=== PATIENT | female | born 1995 | race Caucasian/White ===

== ENCOUNTER 2017-08-05 23:34 | Inpatient (IN) | payer SELFPAY ==
[~2017-08-05] VITALS: Ht 162.6 cm; Wt 62.7 kg
[2017-08-05] MEDS ORDERED: ALPR0.5T8 PO (23:56)
[2017-08-05] MEDS ORDERED: VALA500T38 PO (23:56)
[2017-08-05] MEDS ORDERED: BUPR100 PO (23:56)
[2017-08-05] MEDS ORDERED: ESCI20TA PO (23:56)
[2017-08-06] MEDS ORDERED: SODIUM CHLORIDE 0.9% 1,000 ML IV ONE (00:15)
[2017-08-06 00:41] LABS: BASOPHILS % (AUTO) 0.3 % (0.0-2.0); EOSINOPHILS % (AUTO) 0.5 % (1.0-6.0); HEMATOCRIT 42.2 % (36-46); HEMOGLOBIN 14.3 g/dL (12.0-16.0); LYMPHOCYTES # (AUTO) 2.9 K/uL (1.0-4.8); LYMPHOCYTES % (AUTO) 33.6 % (22.0-44.0); MEAN CORPUSCULAR HEMOGLOBIN 32.4 pg (26.0-34.0); MEAN CORPUSCULAR VOLUME 95 fL (80-100); MONOCYTES # (AUTO) 0.5 K/uL (0.1-1.0); MONOCYTES % (AUTO) 6.1 % (2.0-9.0); NEUTROPHILS # (AUTO) 5.1 K/uL (1.8-7.7); NEUTROPHILS % (AUTO) 59.5 % (40.0-70.0); PLATELET COUNT (AUTO) 221 K/uL (150-450); RED BLOOD CELL COUNT(AUTO) 4.42 MIL/uL (4.00-5.20); RED CELL DISTRIBUTION WIDTH 12.7 % (11.5-14.5)
[2017-08-06 00:45] LABS: ANION GAP 8 mmol/L (8-16); CALCIUM, TOTAL 8.8 mg/dL (8.8-10.5); CARBON DIOXIDE 31 mmol/L (22-29); CHLORIDE 105 mmol/L (98-107); CREATININE 0.71 mg/dL (0.60-1.30); GLOMERULAR FILTR. RATE CALC > 60 mL/min (>60); GLUCOSE,RANDOM 94 mg/dL (70-110); POTASSIUM 4.6 mmol/L (3.5-5.1); SODIUM SERUM 144 mmol/L (136-145); UREA NITROGEN, BLOOD 10 mg/dL (7-18)
[2017-08-06 00:51] LABS: AMPHET/METH SCREEN,URINE NEGATIVE (NEGATIVE); BARBITURATE SCREEN, URINE NEGATIVE (NEGATIVE); BENZODIAZEPINES SCREEN,URINE NEGATIVE (NEGATIVE); CANNABINOID SCREEN,URINE NEGATIVE (NEGATIVE); COCAINE SCREEN,URINE POSITIVE (NEGATIVE); METHADONE SCREEN, URINE NEGATIVE (NEGATIVE); OPIATE SCREEN,URINE NEGATIVE (NEGATIVE); PHENCYCLIDINE SCREEN,URINE NEGATIVE (NEGATIVE)
[2017-08-06 00:52] LABS: ALANINE AMINOTRANSFERASE 24 U/L (12-78); ALBUMIN 3.9 g/dL (3.4-5.0); ALKALINE PHOSPHATASE 40 U/L (46-116); ASPARTATE AMINOTRANSFERASE 33 U/L (15-37); BILIRUBIN,TOTAL 0.4 mg/dL (0.1-1.0); TOTAL PROTEIN, SERUM 7.4 g/dL (6.4-8.2)
[2017-08-06 00:56] LABS: ACETAMINOPHEN < 2 mcg/mL (10-30)
[2017-08-06 00:57] LABS: SALICYLATE < 2.8 mg/dL (2.8-20.0)
[2017-08-06] MEDS ORDERED: HALOPERIDOL 5 MG TABLET PO PRN (01:45)
[2017-08-06] MEDS ORDERED: DiphenhydrAMINE HCL 25 MG CAPSULE PO PRN (01:45)
[2017-08-06] MEDS ORDERED: LORazepam 2 MG TABLET PO PRN (01:45)
[2017-08-06] MEDS ORDERED: IBUPROFEN 600 MG TABLET PO ONE (08:15)
[2017-08-06 10:58] VITALS: BP 126/81
[2017-08-07 05:53] LABS: CHOL/HDL RATIO 2.6 (3.9-5.7)
[2017-08-07 07:49] VITALS: BP 116/70
[2017-08-07] MEDS ORDERED: MAG HYDROX/AL HYDROX/SIMETH ES 30 ML SUSPENSION UDCUP PO PRN (08:30)
[2017-08-07] MEDS ORDERED: PETROLATUM,WHITE 71 GM JELLY TP PRN (08:30)
[2017-08-07] MEDS ORDERED: BENZOCAINE/MENTHOL LOZENGE [8 LOZENGES/PACKET] MM PRN (08:30)
[2017-08-07] MEDS ORDERED: ACETAMINOPHEN 325 MG TABLET PO PRN (08:30)
[2017-08-07] MEDS ORDERED: MAGNESIUM HYDROXIDE SUSPENSION 30 ML UDCUP PO PRN (08:30)
[2017-08-07] MEDS ORDERED: CloNIDine HCL 0.1 MG TABLET PO PRN (08:30)
[2017-08-07] MEDS ORDERED: IBUPROFEN 600 MG TABLET PO PRN (08:30)
[2017-08-07] MEDS ORDERED: BACITRACIN 28.4 GM OINTMENT TP PRN (08:30)
[2017-08-07] MEDS ORDERED: ALBUTEROL SULFATE HFA 90 MCG/PUFF 8 GM INHALER IH PRN (08:30)
[2017-08-07] MEDS ORDERED: ONDANSETRON HCL 4 MG TABLET PO PRN (08:30)
[2017-08-07] MEDS ORDERED: LOPERAMIDE HCL 2 MG CAPSULE PO PRN (08:30)
[2017-08-07] MEDS ORDERED: ValACYclovir HCL 500 MG TABLET PO SCH (09:00)
[2017-08-07] MEDS ORDERED: QUEtiapine FUMARATE 100 MG TABLET PO PRN (09:15)
[2017-08-07] MEDS ORDERED: ZOLPIDEM TARTRATE 10 MG TABLET PO PRN (09:15)
[2017-08-07 09:35] VITALS: BP 116/70
[2017-08-07] MEDS ORDERED: ESCITALOPRAM OXALATE 20 MG TABLET PO ONE (10:30)
[2017-08-07] MEDS ORDERED: ESCI20TA36 PO (17:07)
[2017-08-07] MEDS ORDERED: ESCITALOPRAM OXALATE 20 MG TABLET PO SCH (21:00)
[2017-08-08] MEDS ORDERED: ESCITALOPRAM OXALATE 20 MG TABLET PO SCH (21:00)
== END 2017-08-07 18:00 | disposition home or self-care (01) | DRG 885 ==
LOC: EMS 23:35 → AHU 08-06 10:08
PROVIDERS: ADMIT Psychiatry & Neurology Psychiatry; ATTEND Psychiatry & Neurology Psychiatry
DX: F33.9 Major depressive disorder, recurrent, unspecified (principal); F29 Unspecified psychosis not due to a substance or known physiological condition; A60.00 Herpesviral infection of urogenital system, unspecified; E06.3 Autoimmune thyroiditis; F10.129 Alcohol abuse with intoxication, unspecified; F17.210 Nicotine dependence, cigarettes, uncomplicated; F41.9 Anxiety disorder, unspecified; F14.10 Cocaine abuse, uncomplicated; G47.00 Insomnia, unspecified; T42.6X2A Poisoning by other antiepileptic and sedative-hypnotic drugs, intentional self-harm, initial encounter; M54.30 Sciatica, unspecified side; Y90.6 Blood alcohol level of 120-199 mg/100 ml; Y92.89 Other specified places as the place of occurrence of the external cause
CPT/HCPCS: 93005; 99285; G0480; G0481; J7030